=== PATIENT | female | born 1945 | race African-American/Black ===

== ENCOUNTER 2017-01-28 09:15 | Emergency (ER) | payer MEDICARE, MEDICAID ==
[~2017-01-28] VITALS: Ht 154.9 cm; Wt 100.0 kg
[~2017-01-28 09:15] MED LIST: ADULT ASA81 MG OR; ALAVERT1 TAB OR; AMLODIPINE5 MG PO; ASPIRIN EC81 MG PO; ATENOLOL50 MG OR; ATENOLOL50 MG PO; AVELOX400 MG OR; BACLOFEN10 MG PO; BETIMOL0.5 % OP; CELEXA20 M1 PO; CHERATUSSIN PO; CYCLOBENZAPR10 MG OR; CYMBALTA30 MG OR; DARVOCET N-100100 - OR; DIOVAN HCT160 MG/25 PO; EC ASPIRIN325 MG PO; FENOFIBRATE160 MG OR; FERROUS SULF325 M1 PO; FINASTERIDE5 MG PO; GERI HYDROLA EX; HYDROCHLOROT25 MG PO; HYZAAR1 TA1 OR; IMDUR30 MG PO; LORAZEPAM0.5 MG OR; LORTAB 10-325 M1 TAB PO; LOVASTATIN40 M1 PO; LYRICA100 MG PO; LYRICA75 MG OR; METFORMIN500 MG PO; MORPHINE SUL30 M3 PO; NEXIUM40 M1 OR; NITROGLYCER0.4 M1 SL; NITROGLYCER0.4 MG PO; NITROQUICK0.4 MG SL; OMEPRAZOLE20 MG; OMEPRAZOLE20 MG PO; OXYCODONE5 MG OR; PAXIL20 MG OR; PLAVIX75 MG PO; PLETAL100 MG PO; PREVACID30 M1 PO; QVAR80 MCG IN; ROBITUSSIN AC10 ML PO; SIMVASTATIN40 MG PO; SUCRALFATE1 GM PO; TAB-A-VIT1 OR; TERAZOSIN5 MG PO; TRAMADOL HCL50 MG OR; TRICOR145 MG OR; ULTRAM50 MG PO; VENTOLIN HFA IN; ZITHROMAX250 MG PO; ZPAK PO
[2017-01-28 09:47] LABS: HEMATOCRIT 39.9 % (37.0-47.0); HEMOGLOBIN 12.8 g/dl (12.0-16.0); IMMATURE GRANULOCYTES 0.3 % (0.0-1.0); MEAN CELL VOLUME 87.9 fL CALC (80.0-100.0); MEAN CORPUSCULAR HGB 28.2 pG CALC (26.0-32.0); MEAN CORPUSCULAR HGB CONC 32.1 g/L CALC (32.0-36.0); NEUT# 4.28 thou/uL (2.00-7.15); RED BLOOD COUNT 4.54 mill/uL (4.20-5.60); RED CELL DISTRI WIDTH 14.7 % (11.5-15.5)
[2017-01-28 09:59] LABS: ALBUMIN 4.1 g/dL (3.2-5.0); ALKALINE PHOSPHATASE 118 u/l (38-126); ANION GAP 13 (6-22 (CALC)); BILIRUBIN, TOTAL 0.9 mg/dL (0.0-1.4); BUN 15 mg/dL (8-23); BUN/CREATININE RATIO 25 (12-20 (CALC)); CALCIUM 8.8 mg/dL (8.4-10.2); CARBON DIOXIDE 28 mmol/l (22-30); CHLORIDE 104 mmol/l (95-108); CREATININE 0.6 mg/dL (0.5-1.0); GFR > 60 ML/MIN (>=60 (CALC)); GFR FOR AFR.AMER. > 60 ML/MIN (>=60 (CALC)); GLUCOSE 87 mg/dL (82-115); POTASSIUM 4.1 mmol/l (3.5-5.1); SGOT/AST 31 u/l (9-36); SGPT/ALT 19 u/l (11-66); SODIUM 141 mmol/l (137-146); TOTAL PROTEIN 7.9 g/dL (6.3-8.2)
[2017-01-28 10:04] LABS: ACT PARTIAL THROMBO TIME 25.7 SECONDS (20.0-32.5); INTERNATIONAL NORMALIZED RATIO 0.9 RATIO (0.7-1.3); PROTHROMBIN TIME 10.2 SECONDS (9.0-12.5)
[2017-01-28 10:11] LABS: MYOGLOBIN 27 ng/mL (0 - 62)
[2017-01-28 10:35] LABS: URINE BILIRUBIN - DIPSTICK NEGATIVE (NEGATIVE); URINE BLOOD DIPSTICK NEGATIVE (NEGATIVE); URINE CLARITY CLEAR; URINE COLOR YELLOW; URINE GLUCOSE - DIPSTICK NEGATIVE (NEGATIVE); URINE KETONE NEGATIVE (NEGATIVE); URINE LEUK ESTERASE NEGATIVE (NEGATIVE); URINE NITRITE - DIPSTICK NEGATIVE (Negative); URINE PH 6.5 (4.5-8.0); URINE PROTEIN - DIPSTICK NEGATIVE (NEG-TRACE); URINE SPECIFIC GRAVITY <=1.005
[2017-01-28 11:04] VITALS: BP 165/67
== END 2017-01-28 11:05 | disposition short-term general hospital (02) ==
LOC: ED 09:15
PROVIDERS: Emergency Medicine
DX: I63.9 Cerebral infarction, unspecified (principal); I69.351 Hemiplegia and hemiparesis following cerebral infarction affecting right dominant side; I69.392 Facial weakness following cerebral infarction; E11.9 Type 2 diabetes mellitus without complications; I10 Essential (primary) hypertension; E78.5 Hyperlipidemia, unspecified; R29.703 NIHSS score 3; Z95.5 Presence of coronary angioplasty implant and graft

== ENCOUNTER 2017-04-13 08:05 | Day surgery (SDC) | payer MEDICARE, MEDICAID ==
[~2017-04-13] VITALS: Ht 154.9 cm; Wt 99.8 kg
[~2017-04-13 08:05] MED LIST changes: +OXYBUTYNIN5 M1 PO; +PROTONIX40 M2 PO
[2017-04-13 10:40] VITALS: BP 117/57
== END 2017-04-13 10:55 | disposition home or self-care (01) ==
LOC: ENDO 08:05
PROVIDERS: ATTEND Internal Medicine Gastroenterology
PROC: 0DBL8ZX Excision of Transverse Colon, Via Natural or Artificial Opening Endoscopic, Diagnostic (ICD-10-PCS; principal; 2017-04-13)
PROC: 0DBN8ZX Excision of Sigmoid Colon, Via Natural or Artificial Opening Endoscopic, Diagnostic (ICD-10-PCS; 2017-04-13)
PROC: 0DBK8ZX Excision of Ascending Colon, Via Natural or Artificial Opening Endoscopic, Diagnostic (ICD-10-PCS; 2017-04-13)
DX: R19.5 Other fecal abnormalities (principal); R10.9 Unspecified abdominal pain; K64.4 Residual hemorrhoidal skin tags; K64.8 Other hemorrhoids; K63.5 Polyp of colon; D12.2 Benign neoplasm of ascending colon; D12.5 Benign neoplasm of sigmoid colon; D12.3 Benign neoplasm of transverse colon; E11.9 Type 2 diabetes mellitus without complications; I25.10 Atherosclerotic heart disease of native coronary artery without angina pectoris; Z86.010 Personal history of colon polyps

== ENCOUNTER 2017-10-02 18:51 | Observation (INO) | payer MEDICARE, MEDICAID ==
[~2017-10-02] VITALS: Ht 154.9 cm; Wt 109.4 kg
[~2017-10-02 18:51] MED LIST changes: +DITROPAN PO; +EQL FLUTIC50 MCG/ACT; +GLUCOPHAGE500 MG PO; +ISOSORBIDE MONO30 MG PO; +LEVOCETIRIZINE D5 MG; +MIRALAX3350 NF PO; +NITROSTAT0.4 MG SL; +TRAMADOL HCL50 MG PO
--- NOTE | 2017-10-02 19:05 | NUR ---
PT ARRIVES VIA EMS, PT TRANSFERED TO STRETCHER W/OUT INCIDENT. FAMILY AT BEDSIDE. PT A&OX3, PT DENIES C/P OR ACUTE DISTRESS AT THIS TIME. PT JARON. PLAN OF CARE DISCUSSED WITH PT AND FAMILY
--- NOTE | 2017-10-02 19:20 | NUR ---
PT REASSESSMENT COMPLETE. PT REMAINS STABLE. SUPERVISOR ERECTION SHOP IN PLACE. FAMILY AT BEDSIDE.
[2017-10-02 19:32] LABS: HEMATOCRIT 42.6 % (37.0-47.0); HEMOGLOBIN 13.5 g/dl (12.0-16.0); IMMATURE GRANULOCYTES 0.3 % (0.0-1.0); MEAN CELL VOLUME 89.1 fL CALC (80.0-100.0); MEAN CORPUSCULAR HGB 28.2 pG CALC (26.0-32.0); MEAN CORPUSCULAR HGB CONC 31.7 g/L CALC (32.0-36.0); NEUT# 5.29 thou/uL (2.00-7.15); RED BLOOD COUNT 4.78 mill/uL (4.20-5.60); RED CELL DISTRI WIDTH 14.7 % (11.5-15.5)
--- NOTE | 2017-10-02 19:40 | NUR ---
PT REASSESSMENT COMPLETE. PT DENIES ANY CHANGE IN STATUS. NEEDS ASSESSMENT COMPLETE, PT DENIES ANY NEEDS AT THIS TIME.
[2017-10-02 19:44] LABS: ACT PARTIAL THROMBO TIME 22.7 SECONDS (20.0-32.5); ALBUMIN 4.2 g/dL (3.2-5.0); ALKALINE PHOSPHATASE 125 u/l (38-126); ANION GAP 16 (6-22 (CALC)); BILIRUBIN, TOTAL 0.7 mg/dL (0.0-1.4); BUN 14 mg/dL (8-23); BUN/CREATININE RATIO 18 (12-20 (CALC)); CARBON DIOXIDE 26 mmol/l (22-30); CHLORIDE 106 mmol/l (95-108); CREATININE 0.8 mg/dL (0.5-1.0); GFR > 60 ML/MIN (>=60 (CALC)); GFR FOR AFR.AMER. > 60 ML/MIN (>=60 (CALC)); POTASSIUM 3.6 mmol/l (3.5-5.1); PROTHROMBIN TIME 10.6 SECONDS (9.0-12.5); SGOT/AST 25 u/l (9-36); SGPT/ALT 20 u/l (11-66); SODIUM 144 mmol/l (137-146); TOTAL PROTEIN 7.5 g/dL (6.3-8.2)
[2017-10-02 19:56] LABS: MYOGLOBIN 44 ng/mL (0 - 62)
--- NOTE | 2017-10-02 19:56 | NUR ---
PT MEDICATED PER MD ORDER. PT DENIES ANY ADDITIONAL COMPLAINTS. PT IN NO PAIN AT THIS TIME.
--- NOTE | 2017-10-02 20:20 | NUR ---
PT AND FAMILY REMAIN IN TX RM 15. PT IN NO ACUTE DISTRESS AT THIS TIME. PT DENIES NEEDS AT THIS TIME.
--- NOTE | 2017-10-02 21:00 | NUR ---
PT RESTING WITH FAMILY AT BEDSIDE. PT DENIES ANY CHANGE IN STATUS. PT ADVISED OF PLAN OF CARE.
--- NOTE | 2017-10-02 21:30 | NUR ---
PT PROVIDED BSC FAMILY REMAIN IN RM. DENIES ANY NEEDS AT THIS TIME.
--- NOTE | 2017-10-02 22:05 | NUR ---
PT REASSESSMENT COMPLETE. ONLY C/O "HUNGRY" PROVIDED SANDWHICH AND PO FLUIDS
[2017-10-02 22:20] LABS: URINE BILIRUBIN - DIPSTICK NEGATIVE (NEGATIVE); URINE BLOOD DIPSTICK NEGATIVE (NEGATIVE); URINE COLOR YELLOW; URINE GLUCOSE - DIPSTICK NEGATIVE (NEGATIVE); URINE KETONE NEGATIVE (NEGATIVE); URINE LEUK ESTERASE TRACE (NEGATIVE); URINE PROTEIN - DIPSTICK NEGATIVE (NEG-TRACE); URINE SPECIFIC GRAVITY 1.025
[2017-10-02 22:22] LABS: URINE CLARITY CLOUDY; URINE NITRITE - DIPSTICK POSITIVE (Negative)
[2017-10-02 22:28] LABS: URINE BACTERIA MANY hpf; URINE SQUAMOUS EPITHELIAL CELL FEW EPI/hpf (0-FEW)
--- NOTE | 2017-10-02 22:32 | NUR ---
REPORT TO JACKY TURCIOS. DENIES ANY QUESTIONS UPON COMPLETION.
--- NOTE | 2017-10-02 22:45 | NUR ---
PT TRANSFERED TO MED SURG W/OUT INCIDENT. PT CONTINUES TO IMPROVE. PT THANKED ME FOR MY CARE.
[2017-10-02 22:50] VITALS: BP 95/62
--- NOTE | 2017-10-02 22:50 | NUR ---
RECEIVED FROM ER VIA STRETCHER ACCOMPANIED BY SHA TURCIOS. AMBULATING TO BED WITH STANDBY ASSISTANCE, A/O X3, RESPIRATIONS EVEN AND UNALBORED. DENIES CHEST PAIN, OR DIZZINESS AT THIS TIME. TELE IN PLACE READING SR. ORIENTED TO BED CONTROLS AND CALL LIGHT. PO FLUIDS IN REACH.
[2017-10-03 04:08] VITALS: BP 92/58
--- NOTE | 2017-10-03 04:30 | NUR ---
OOB TO BSC WITH STANDBY ASSISTANCE, SLICK LYN AT PT'S SIDE. A/O X3, DENIES CHEST PAIN.
[2017-10-03 07:01] LABS: HEMOGLOBIN 12.8 g/dl (12.0-16.0); MEAN CELL VOLUME 90.3 fL CALC (80.0-100.0); MEAN CORPUSCULAR HGB 28.9 pG CALC (26.0-32.0); RED BLOOD COUNT 4.43 mill/uL (4.20-5.60); RED CELL DISTRI WIDTH 14.9 % (11.5-15.5)
[2017-10-03 07:55] VITALS: BP 114/70
--- NOTE | 2017-10-03 07:55 | NUR ---
ASSESSMENT IS COMPLETEDl: IV SITE IS FREE FROM REDNESS OR EDEMA. HR IS REG,PULSES ARE STRONG X4,ABD IS SOFT WITH ACTIVE BS. CONTINUE TO OBSERVE AND MONITOR.
[2017-10-03 11:04] VITALS: BP 131/67
--- NOTE | 2017-10-03 12:00 | NUR ---
PT IS RELAXING IN THE CHAIR, NO DISTRESS NOTED, IV SITE IS FREE FROM REDNESS OR EDEMA.
[2017-10-03] MEDS ORDERED: DIOVAN HCT PO (14:07)
[2017-10-03] MEDS ORDERED: TRAMADOL HYDROC50 MG PO (14:08)
[2017-10-03] MEDS ORDERED: DOXYCYC MONO100 M2 PO (14:27)
--- NOTE | 2017-10-03 14:42 | NUR ---
PT RECEIVED DISCHARGE INSTRUCTIONS AND VERBALIZED UNDERSTANDING.IV SITE DISCONTINUED CATHETER INTACT. NO DISTRESS NOTED. TELE MONITOR TAKEN OFF.
--- NOTE | 2017-10-03 14:56 | NUR ---
PT BEING TRANSPORTED TO GO HOME IV SITE WAS DISCONTINUED Discharge instructions given. Patient verbalizes understanding of same. Discharged in stable condition via Wheelchair to Home with family. All belongings sent with pt.
== END 2017-10-03 14:48 | disposition home or self-care (01) ==
LOC: ED 18:51 → ED-I 21:20 → ED 21:49 → MS2 21:50
PROVIDERS: Emergency Medicine; Nurse Practitioner Family; ADMIT Internal Medicine; ATTEND Internal Medicine
DX: R07.89 Other chest pain (principal); R55 Syncope and collapse; T46.3X5A Adverse effect of coronary vasodilators, initial encounter; I10 Essential (primary) hypertension; I25.10 Atherosclerotic heart disease of native coronary artery without angina pectoris; E78.5 Hyperlipidemia, unspecified; E11.40 Type 2 diabetes mellitus with diabetic neuropathy, unspecified; M19.90 Unspecified osteoarthritis, unspecified site; N39.0 Urinary tract infection, site not specified; B96.20 Unspecified Escherichia coli [E. coli] as the cause of diseases classified elsewhere; Z95.5 Presence of coronary angioplasty implant and graft; Z86.73 Personal history of transient ischemic attack (TIA), and cerebral infarction without residual deficits; Z79.82 Long term (current) use of aspirin; Z79.02 Long term (current) use of antithrombotics/antiplatelets; Z87.891 Personal history of nicotine dependence; Z79.84 Long term (current) use of oral hypoglycemic drugs

== ENCOUNTER 2018-08-01 17:27 | Observation (INO) | payer MEDICARE, MEDICAID ==
[~2018-08-01] VITALS: Ht 154.9 cm; Wt 104.8 kg
[~2018-08-01 17:27] MED LIST changes: +DIOVAN HCT PO; +DOXYCYC MONO100 M2 PO; +TRAMADOL HYDROC50 MG PO
[2018-08-01] MEDS ORDERED: OMEPRAZOLE10 MG PO (17:48)
[2018-08-01 18:04] LABS: HEMATOCRIT 42.4 % (37.0-47.0); HEMOGLOBIN 13.6 g/dl (12.0-16.0); IMMATURE GRANULOCYTES 0.2 % (0.0-5.0); MEAN CELL VOLUME 90.2 fL CALC (80.0-100.0); MEAN CORPUSCULAR HGB 28.9 pG CALC (26.0-32.0); MEAN CORPUSCULAR HGB CONC 32.1 g/L CALC (32.0-36.0); NEUT# 7.37 thou/uL (2.00-7.15); RED BLOOD COUNT 4.7 mill/uL (4.20-5.60); RED CELL DISTRI WIDTH 14.6 % (11.5-15.5)
[2018-08-01 18:15] LABS: ALBUMIN 3.9 g/dL (3.2-5.0); ALKALINE PHOSPHATASE 100 u/l (38-126); ANION GAP 14 (6-22 (CALC)); BILIRUBIN, TOTAL 0.8 mg/dL (0.0-1.4); BUN 12 mg/dL (8-23); BUN/CREATININE RATIO 16 (12-20 (CALC)); CARBON DIOXIDE 26 mmol/l (22-30); CHLORIDE 106 mmol/l (95-108); CREATININE 0.8 mg/dL (0.5-1.0); GFR > 60 ML/MIN (>=60 (CALC)); GFR FOR AFR.AMER. > 60 ML/MIN (>=60 (CALC)); LIPASE 72 u/l (23-300); POTASSIUM 3.7 mmol/l (3.5-5.1); SGOT/AST 21 u/l (9-36); SODIUM 142 mmol/l (137-146); TOTAL PROTEIN 7.6 g/dL (6.3-8.2)
[2018-08-01 19:45] VITALS: BP 142/76
[2018-08-02 00:28] VITALS: BP 145/80
[2018-08-02 04:51] VITALS: BP 141/76
[2018-08-02 06:38] LABS: CHOLESTEROL HDL RATIO 4.3 (<4.4 (CALC))
[2018-08-02 06:40] LABS: MAGNESIUM 1.7 mg/dL (1.6-2.3)
[2018-08-02 08:43] VITALS: BP 101/56
[2018-08-02 11:15] VITALS: BP 107/62
[2018-08-02] MEDS ORDERED: ROBITUSSIN AC10 ML PO (12:47)
== END 2018-08-02 14:38 | disposition home or self-care (01) ==
LOC: ED 17:27 → ED-I 18:00 → ED 18:59 → MS2 19:00
PROVIDERS: Emergency Medicine; ADMIT Internal Medicine; ATTEND Internal Medicine
DX: R07.89 Other chest pain (principal); R05 Cough; I10 Essential (primary) hypertension; E11.40 Type 2 diabetes mellitus with diabetic neuropathy, unspecified; I25.10 Atherosclerotic heart disease of native coronary artery without angina pectoris; E78.5 Hyperlipidemia, unspecified; K21.9 Gastro-esophageal reflux disease without esophagitis; G89.29 Other chronic pain; F41.8 Other specified anxiety disorders; Z95.5 Presence of coronary angioplasty implant and graft; Z87.891 Personal history of nicotine dependence; Z86.73 Personal history of transient ischemic attack (TIA), and cerebral infarction without residual deficits; Z96.641 Presence of right artificial hip joint; Z98.890 Other specified postprocedural states; R06.02 Shortness of breath

== ENCOUNTER 2018-12-14 21:39 | Emergency (ER) | payer MEDICARE, MEDICAID ==
[~2018-12-14] VITALS: Ht 154.9 cm; Wt 102.7 kg
[~2018-12-14 21:39] MED LIST changes: +OMEPRAZOLE10 MG PO
--- NOTE | 2018-12-14 21:58 | NUR ---
BREATHING TREATMENT GIVEN BACK TO BACK. BREATHING TECH. FOR GOOD DEPOSITION TO THE LUNGS.
[2018-12-14 22:12] LABS: HEMATOCRIT 44.9 % (37.0-47.0); HEMOGLOBIN 14.2 g/dl (12.0-16.0); IMMATURE GRANULOCYTES 0.5 % (0.0-5.0); MEAN CELL VOLUME 90.3 fL CALC (80.0-100.0); MEAN CORPUSCULAR HGB 28.6 pG CALC (26.0-32.0); MEAN CORPUSCULAR HGB CONC 31.6 g/L CALC (32.0-36.0); NEUT# 4.93 thou/uL (2.00-7.15); RED BLOOD COUNT 4.97 mill/uL (4.20-5.60); RED CELL DISTRI WIDTH 15.6 % (11.5-15.5)
[2018-12-14] MEDS ORDERED: PREDNISONE50 MG PO (23:07)
[2018-12-14] MEDS ORDERED: ALBUTEROL SUL0.083 % IN (23:07)
[2018-12-14] MEDS ORDERED: TESSALON PER100 MG PO (23:08)
[2018-12-14 23:20] VITALS: BP 145/90
== END 2018-12-14 23:20 | disposition home or self-care (01) ==
LOC: ED 21:39
PROVIDERS: Family Medicine
DX: J45.901 Unspecified asthma with (acute) exacerbation (principal); E11.9 Type 2 diabetes mellitus without complications; I10 Essential (primary) hypertension; Z86.73 Personal history of transient ischemic attack (TIA), and cerebral infarction without residual deficits

== ENCOUNTER 2019-06-02 11:22 | Emergency (ER) | payer MEDICARE, MEDICAID ==
[~2019-06-02] VITALS: Ht 154.9 cm; Wt 101.0 kg
[~2019-06-02 11:22] MED LIST changes: +ALBUTEROL SUL0.083 % IN; -ASPIRIN EC81 MG PO; +BAYER ASPIRIN E81 MG PO; +CITALOPRAM20 M1 PO; +CLOPIDOGREL75 MG PO; +LOSARTAN POTASS50 MG PO; +MAXZIDE-2537.5 MG/TA PO; +PREDNISONE50 MG PO; +TESSALON PER100 MG PO; +VALSARTAN160 MG; +VENTOLIN HF1 IN
[2019-06-02] MEDS ORDERED: LYRICA150 M1 PO (12:06)
[2019-06-02] MEDS ORDERED: DITROPAN5 MG/TA1 PO (12:08)
[2019-06-02] MEDS ORDERED: MAXZIDE-2537.5 MG/TA PO (12:09)
[2019-06-02] MEDS ORDERED: METFORMIN500 M2 PO (12:10)
[2019-06-02] MEDS ORDERED: VENTOLIN H108 MCG/AC PO (12:12)
[2019-06-02] MEDS ORDERED: AMOXICILLIN875 MG PO (13:05)
[2019-06-02 13:15] VITALS: BP 139/71
== END 2019-06-02 13:15 | disposition home or self-care (01) ==
LOC: ED 11:22
DX: J06.9 Acute upper respiratory infection, unspecified (principal); J02.9 Acute pharyngitis, unspecified; I10 Essential (primary) hypertension; E11.9 Type 2 diabetes mellitus without complications; Z79.84 Long term (current) use of oral hypoglycemic drugs
CPT/HCPCS: J0561

== ENCOUNTER 2020-05-26 08:57 | Observation (INO) | payer MEDICARE, MEDICAID ==
[~2020-05-26] VITALS: Ht 154.9 cm; Wt 104.8 kg
[~2020-05-26 08:57] MED LIST changes: +AMOXICILLIN875 MG PO; +DITROPAN5 MG/TA1 PO; +LYRICA150 M1 PO; +VENTOLIN H108 MCG/AC PO
--- NOTE | 2020-05-26 09:13 | NUR ---
PATIENT TO ROOM VIA WHEELCHAIR FOR BEDSIDE TRIAGE.
--- NOTE | 2020-05-26 10:10 | NUR ---
UNABLE TO OBTAIN IV AFTER MULTIPLE ATTEMPTS BY MULTIPLE PEOPLE, NOTIFIED.
[2020-05-26 10:35] LABS: URINE BILIRUBIN - DIPSTICK NEGATIVE (NEGATIVE); URINE BLOOD DIPSTICK NEGATIVE (NEGATIVE); URINE COLOR YELLOW; URINE GLUCOSE - DIPSTICK NEGATIVE (NEGATIVE); URINE KETONE NEGATIVE (NEGATIVE); URINE LEUK ESTERASE NEGATIVE (NEGATIVE); URINE PH 6.5 (4.5-8.0); URINE PROTEIN - DIPSTICK NEGATIVE (NEG-TRACE); URINE SPECIFIC GRAVITY 1.025; URINE UROBILINOGEN - DIPSTICK 0.2 E.U./dL (0.2)
[2020-05-26 10:39] LABS: HEMATOCRIT 45.9 % (37.0-47.0); HEMOGLOBIN 14.6 g/dl (12.0-16.0); IMMATURE GRANULOCYTES 0.2 % (0.0-5.0); MEAN CELL VOLUME 89.5 fL CALC (80.0-100.0); MEAN CORPUSCULAR HGB 28.5 pG CALC (26.0-32.0); MEAN CORPUSCULAR HGB CONC 31.8 g/dL CAL (32.0-36.0); NEUT# 4.25 thou/uL (2.00-7.15); RED BLOOD COUNT 5.13 mill/uL (4.20-5.60); RED CELL DISTRI WIDTH 14.8 % (11.5-15.5)
[2020-05-26 10:43] LABS: URINE NITRITE - DIPSTICK POSITIVE (Negative)
[2020-05-26 10:47] LABS: ALBUMIN 4.1 g/dL (3.2-5.0); ALKALINE PHOSPHATASE 115 u/l (38-126); ANION GAP 12 (6-22 (CALC)); BILIRUBIN, TOTAL 0.8 mg/dL (0.0-1.4); BUN 13 mg/dL (8-23); BUN/CREATININE RATIO 18 (12-20 (CALC)); CARBON DIOXIDE 28 mmol/l (22-30); CHLORIDE 104 mmol/l (95-108); CREATININE 0.7 mg/dL (0.5-1.0); GFR > 60 ML/MIN (>=60 (CALC)); GFR FOR AFR.AMER. > 60 ML/MIN (>=60 (CALC)); LIPASE 99 u/l (23-300); POTASSIUM 3.9 mmol/l (3.5-5.1); SGOT/AST 26 u/l (9-36); SODIUM 139 mmol/l (137-146); TOTAL PROTEIN 7.6 g/dL (6.3-8.2)
[2020-05-26 10:50] LABS: URINE BACTERIA MANY hpf; URINE RBC 0-2 RBC/hpf (0-5); URINE SQUAMOUS EPITHELIAL CELL FEW EPI/hpf (0-FEW); URINE WBC 0-2 WBC/hpf (0-5)
--- NOTE | 2020-05-26 11:05 | NUR ---
TO RADIOLOGY IN STABLE CONDITION VIA WHEELCHAIR.
--- NOTE | 2020-05-26 12:05 | NUR ---
PT AMBULATED TO BATHROOM WITH STEADY GAIT.
--- NOTE | 2020-05-26 12:30 | NUR ---
MD AT BEDSIDE TO DISCUSS RESULTS AND POC.
--- NOTE | 2020-05-26 12:45 | NUR ---
REPORT CALLED TO MUKUL TURCIOS.
[2020-05-26] MEDS ORDERED: NAPROXEN250 MG PO (12:46)
[2020-05-26] MEDS ORDERED: ISOSORB MONO30 MG PO (12:46)
[2020-05-26] MEDS ORDERED: MECLIZINE25 MG PO (12:47)
--- NOTE | 2020-05-26 13:10 | NUR ---
TO ROOM 273 VIA WHEELCHAIR, TELE MONITOR IN PLACE. ACCOMPANIED BY DAUGHTER.
[2020-05-26 13:15] VITALS: BP 168/100
--- NOTE | 2020-05-26 13:30 | NUR ---
PT ARRIVES TO ROOM 273 BY WHEELCHAIR FROM EMERGENCY ROOM, ACCOMPANIED BY DAUGHTER AND HARPER TURCIOS. PT IS ALERT AND ORIENTED X 3. LUNGS CLEAR, RA. NO DISTRESS, PT IS AMBULATORY IN ROOM. ADMISSION ASSESSMENT COMPLETED WITHOUT INCIDENT, PT NOW EATING FROM MEAL TRAY PROVIDED. DAUGHTER HAS GONE HOME.
[2020-05-26 15:54] VITALS: BP 192/90
[2020-05-26 16:30] VITALS: BP 186/89
--- NOTE | 2020-05-26 16:59 | NUR ---
PT BECAME SHORT OF BREATH THIS AFTERNOON AFTER USING BSC. PT WAS EVALUATED BY RN AND RT, SEEN TO HAVE SATS 100%. NC PLACED AT 2 LPM FOR PT COMFORT. PT THEN MENTIONED THAT SHE THOUGHT IT MAY BE RELATED TO HYDRALAZINE RECENTLY GIVEN FOR ELEVATED BLOOD PRESSURE. TO MONITOR...
--- NOTE | 2020-05-26 18:05 | NUR ---
PT SEEN EATING SUPPER AT THIS TIME, NO FURTHER COMPLAINT OF SHORTNESS OF BREATH OR CHEST PAIN. IV ABX RUNNING FOR BLADDER INFECTION.
[2020-05-26 19:00] VITALS: BP 163/87
--- NOTE | 2020-05-26 19:03 | NUR ---
REPORT FROM MUKUL TURCIOS. PT NOTED RESTING IN BED WATCHING TV WITH DAUGHTER AT BEDSIDE. PT ALERT AND ORIENTED. NO APPARENT DISTRESS NOTED. RESPIRATIONS EVEN AND UNLABORED. IV FLUIDS INFUSING WITHOUT DIFFICULTY. QA ARCHITECT IN PLACE. DISCUSSED POC. PT VERBALIZED UNDERSTANDING. CALL LIGHT WITHIN REACH. WILL CONTINUE TO MONITOR.
--- NOTE | 2020-05-26 19:20 | NUR ---
BP REMAINS ELEVATED AND PT C/O BILATERAL BED PAIN. MEDICATED FOR BOTH AT THIS TIME. WILL CONTINUE TO MONITOR.
[2020-05-26 20:30] VITALS: BP 135/64
--- NOTE | 2020-05-26 20:30 | NUR ---
REASSESSMENT OF BP 135/64. PT RESTING IN BED. DENIES ANY CURRENT PAIN OR DISCOMFORT. NO WANTS OR NEEDS NOTED. CALL LIGHT WITHIN REACH. WILL CONTINUE TO MONITOR.
[2020-05-27] VITALS: BP 136/78
--- NOTE | 2020-05-27 00:05 | NUR ---
PT RESTING IN BED. NO APPARENT DISTRESS NOTED. VSS. CALL LIGHT WITHIN REACH. WILL CONTINUE TO MONITOR.
[2020-05-27 04:00] VITALS: BP 139/78
--- NOTE | 2020-05-27 04:41 | NUR ---
PT RESTING IN BED WITH EYES CLOSED. NO APPARENT DISTRESS NOTED. RESPIRATIONS EVEN AND UNLABORED. CALL LIGHT WITHIN REACH. WILL CONTINUE TO MONITOR.
[2020-05-27 06:49] LABS: HEMATOCRIT 48.1 % (37.0-47.0); IMMATURE GRANULOCYTES 0.2 % (0.0-5.0); MEAN CELL VOLUME 90.4 fL CALC (80.0-100.0); MEAN CORPUSCULAR HGB 28.2 pG CALC (26.0-32.0); MEAN CORPUSCULAR HGB CONC 31.2 g/dL CAL (32.0-36.0); NEUT# 4.04 thou/uL (2.00-7.15); RED BLOOD COUNT 5.32 mill/uL (4.20-5.60)
[2020-05-27 07:03] LABS: ALBUMIN 3.6 g/dL (3.2-5.0); ALKALINE PHOSPHATASE 112 u/l (38-126); ANION GAP 11 (6-22 (CALC)); BILIRUBIN, TOTAL 0.8 mg/dL (0.0-1.4); BUN 8 mg/dL (8-23); BUN/CREATININE RATIO 12 (12-20 (CALC)); CALCULATED LDLCHOLESTEROL 121 mg/dL (62-129 (CALC)); CARBON DIOXIDE 25 mmol/l (22-30); CHLORIDE 104 mmol/l (95-108); CHOLESTEROL HDL RATIO 4.6 (<4.4 (CALC)); CREATININE 0.7 mg/dL (0.5-1.0); GFR > 60 ML/MIN (>=60 (CALC)); GFR FOR AFR.AMER. > 60 ML/MIN (>=60 (CALC)); HDL CHOLESTEROL 44 mg/dL (>=40); MAGNESIUM 1.8 mg/dL (1.6-2.3); SGOT/AST 29 u/l (9-36); SODIUM 137 mmol/l (137-146); TOTAL CHOLESTEROL 200 mg/dl (0-199); TOTAL PROTEIN 6.8 g/dL (6.3-8.2); TOTAL TRIGLYCERIDES 175 mg/dl (30-149); VLDL CHOLESTROL 35 mg/dl (0-48 (CALC))
[2020-05-27 07:29] VITALS: BP 154/77
--- NOTE | 2020-05-27 09:00 | NUR ---
PT SEEN AWAKE, ALERT, ORIENTED X 3. PT STATES THAT SHE STILL FEELS SHORT OF BREATH, WHICH HAS BEEN ONGOING FOR SOME WEEKS NOW. PT HOPES FOR DISCHARGE TO HOME. NO ACUTE DISTRESS NOTED.
[2020-05-27] MEDS ORDERED: METFORMIN500 M2 PO (09:04)
[2020-05-27 09:05] VITALS: BP 154/77
[2020-05-27] MEDS ORDERED: KEFLEX500 MG PO (09:06)
--- NOTE | 2020-05-27 10:00 | NUR ---
PT HAS BEEN DISCHARGED TO HOME. IV REMOVED, TELE REMOVED, PT VERBALIZES UNDERSTANDING OF DC INSTRUCTIONS, TAKEN BY WHEELCHAIR TO VEHICLE WHERE HER SON PICKED HER UP. PT LEAVES IN STABLE CONDITION, AWARE THAT SHE SHOULD RETURN IF NEEDED.
== END 2020-05-27 10:00 | disposition home or self-care (01) ==
LOC: ED 08:57 → ED-I 12:15 → ED 12:31 → MS2 12:32
PROVIDERS: Family Medicine; Nurse Practitioner; ADMIT Internal Medicine; ATTEND Internal Medicine
DX: R07.9 Chest pain, unspecified (principal); N39.0 Urinary tract infection, site not specified; I10 Essential (primary) hypertension; T42.6X6A Underdosing of other antiepileptic and sedative-hypnotic drugs, initial encounter; I69.351 Hemiplegia and hemiparesis following cerebral infarction affecting right dominant side; I25.10 Atherosclerotic heart disease of native coronary artery without angina pectoris; E78.5 Hyperlipidemia, unspecified; E11.40 Type 2 diabetes mellitus with diabetic neuropathy, unspecified; B96.20 Unspecified Escherichia coli [E. coli] as the cause of diseases classified elsewhere; Z87.891 Personal history of nicotine dependence; Z91.128 Patient's intentional underdosing of medication regimen for other reason; Z95.5 Presence of coronary angioplasty implant and graft; Z79.84 Long term (current) use of oral hypoglycemic drugs; Z20.828 Contact with and (suspected) exposure to other viral communicable diseases
CPT/HCPCS: G0378; J1650; Q9967

== ENCOUNTER 2021-03-16 14:54 | Emergency (ER) | payer MEDICARE, MEDICAID ==
[~2021-03-16] VITALS: Ht 154.9 cm; Wt 100.0 kg
[~2021-03-16 14:54] MED LIST changes: +ISOSORB MONO30 MG PO; +KEFLEX500 MG PO; +MECLIZINE25 MG PO; +METFORMIN500 M2 PO; +NAPROXEN250 MG PO
[2021-03-16] MEDS ORDERED: NAPROXEN500 MG PO (16:11)
[2021-03-16 16:35] VITALS: BP 158/78
== END 2021-03-16 16:35 | disposition home or self-care (01) ==
LOC: ED 14:54
DX: S00.83XA Contusion of other part of head, initial encounter (principal); I10 Essential (primary) hypertension; W01.0XXA Fall on same level from slipping, tripping and stumbling without subsequent striking against object, initial encounter; Y92.009 Unspecified place in unspecified non-institutional (private) residence as the place of occurrence of the external cause; Z79.82 Long term (current) use of aspirin

== ENCOUNTER 2022-05-25 14:01 | Emergency (ER) | payer MEDICARE, MEDICAID ==
[~2022-05-25] VITALS: Ht 154.9 cm; Wt 103.0 kg
[~2022-05-25 14:01] MED LIST changes: +NAPROXEN500 MG PO
[2022-05-25 14:17] VITALS: BP 154/92
[2022-05-25] MEDS ORDERED: LYRICA150 MG PO (14:23)
[2022-05-25] MEDS ORDERED: CRESTOR10 MG PO (14:23)
[2022-05-25] MEDS ORDERED: HYDROCO/APAP1 T10 PO (14:24)
[2022-05-25 14:30] LABS: HEMATOCRIT 46.5 % (37.0-47.0); HEMOGLOBIN 14.7 g/dl (12.0-16.0); MEAN CELL VOLUME 92.6 fL CALC (80.0-100.0); MEAN CORPUSCULAR HGB 29.3 pG CALC (26.0-32.0); MEAN CORPUSCULAR HGB CONC 31.6 g/dL CAL (32.0-36.0); NEUT# 4.67 thou/uL (2.00-7.15); RED BLOOD COUNT 5.02 mill/uL (4.20-5.60); RED CELL DISTRI WIDTH 14.5 % (11.5-15.5)
[2022-05-25 14:47] VITALS: BP 118/97
[2022-05-25 14:53] LABS: ALKALINE PHOSPHATASE 119 u/l (38-126); ANION GAP 13 (6-22 (CALC)); BUN 13 mg/dL (8-23); BUN/CREATININE RATIO 16 (12-20 (CALC)); CARBON DIOXIDE 26 mmol/l (22-30); CHLORIDE 104 mmol/l (95-108); CREATININE 0.8 mg/dL (0.5-1.0); GFR FOR AFR.AMER. > 60 ML/MIN (>=60 (CALC)); GFR OTHER RACES > 60 ML/MIN (>=60 (CALC)); POTASSIUM 3.9 mmol/l (3.5-5.1); PROTHROMBIN TIME 10.1 SECONDS (9.0-12.5); SGOT/AST 38 u/l (9-36); SODIUM 139 mmol/l (137-146); TOTAL PROTEIN 8.1 g/dL (6.3-8.2)
[2022-05-25 14:57] LABS: ALBUMIN 4.5 g/dL (3.2-5.0)
[2022-05-25 15:16] VITALS: BP 162/135
[2022-05-25 15:22] LABS: URINE BILIRUBIN - DIPSTICK NEGATIVE (NEGATIVE); URINE BLOOD DIPSTICK NEGATIVE (NEGATIVE); URINE COLOR YELLOW; URINE GLUCOSE - DIPSTICK NEGATIVE (NEGATIVE); URINE KETONE NEGATIVE (NEGATIVE); URINE LEUK ESTERASE TRACE (NEGATIVE); URINE NITRITE - DIPSTICK NEGATIVE (Negative); URINE PROTEIN - DIPSTICK NEGATIVE (NEG-TRACE)
[2022-05-25 15:25] LABS: URINE BACTERIA MANY hpf; URINE SQUAMOUS EPITHELIAL CELL FEW EPI/hpf (0-FEW)
[2022-05-25 15:31] VITALS: BP 143/66
[2022-05-25 15:43] VITALS: BP 143/66
== END 2022-05-25 16:03 | disposition home or self-care (01) ==
LOC: ED 14:01
PROVIDERS: Family Medicine
DX: H53.8 Other visual disturbances (principal); I69.351 Hemiplegia and hemiparesis following cerebral infarction affecting right dominant side; I10 Essential (primary) hypertension; I25.2 Old myocardial infarction; I25.10 Atherosclerotic heart disease of native coronary artery without angina pectoris; E78.5 Hyperlipidemia, unspecified; R73.03 Prediabetes; G62.9 Polyneuropathy, unspecified; Z95.5 Presence of coronary angioplasty implant and graft; Z87.891 Personal history of nicotine dependence

== ENCOUNTER → 2024-10-30 | Emergency (ER) | payer MEDICARE, MEDICAID ==
[~2024-10-30] VITALS: Ht 154.9 cm; Wt 95.0 kg
[2024-10-30] VITALS (9 sets, daily range): BP systolic 103–164; BP diastolic 69–120
[~2024-10-30] MED LIST changes: +BENZONATATE200 MG PO; +CRESTOR10 MG PO; +HYDROCO/APAP1 T10 PO; +LYRICA150 MG PO; +MEDDOSEPAK PO; +METHOCARBAMOL500 MG PO
[2024-10-30 15:33] LABS: BASO% 0.5 % (0-3); EOS% 1.1 % (0-8); HEMATOCRIT 42.8 % (37.0-47.0); HEMOGLOBIN 13.3 g/dl (12.0-16.0); IMMATURE GRANULOCYTES 0.2 % (0.0-5.0); LYMPH% 16.4 % (15-41); MEAN CELL VOLUME 94.3 fL CALC (80.0-100.0); MEAN CORPUSCULAR HGB 29.3 pG CALC (26.0-32.0); MEAN CORPUSCULAR HGB CONC 31.1 g/dL CAL (32.0-36.0); MONO% 9.2 % (2-13); NEUT# 4.12 thou/uL (2.00-7.15); NEUT% 72.6 % (42-76); RED BLOOD COUNT 4.54 mill/uL (4.20-5.60); RED CELL DISTRI WIDTH 13.9 % (11.5-15.5)
[2024-10-30 15:46] LABS: ALBUMIN 4.2 g/dL (3.2-5.0); ALKALINE PHOSPHATASE 111 u/l (38-126); ANION GAP 9 (6-22 (CALC)); BILIRUBIN, TOTAL 0.7 mg/dL (0.02-1.3); BUN 16 mg/dL (8-23); BUN/CREATININE RATIO 19 (12-20 (CALC)); CARBON DIOXIDE 33 mmol/l (22-30); CHLORIDE 100 mmol/l (95-108); CREATININE 0.8 mg/dL (0.5-1.0); ESTIMATED GFR 75 ML/MIN (>=90 (CALC)); LIPASE 100 u/l (23-300); POTASSIUM 3.9 mmol/l (3.5-5.1); SGOT/AST 37 u/l (9-36); SODIUM 139 mmol/l (137-146); TOTAL PROTEIN 8.1 g/dL (6.3-8.2)
[2024-10-30 16:34] LABS: URINE BILIRUBIN - DIPSTICK Negative (NEGATIVE); URINE BLOOD DIPSTICK Negative (NEGATIVE); URINE GLUCOSE - DIPSTICK Negative (NEGATIVE); URINE KETONE Negative (NEGATIVE); URINE LEUK ESTERASE Negative (NEGATIVE); URINE NITRITE - DIPSTICK Negative (Negative); URINE PROTEIN - DIPSTICK Negative (NEG-TRACE); URINE SPECIFIC GRAVITY 1.015; URINE UROBILINOGEN - DIPSTICK 0.2 E.U./dL (0.2)
[2024-10-30 16:35] LABS: URINE COLOR Yellow
== END | disposition home or self-care (01) ==
LOC: ED 14:38
PROVIDERS: Nurse Practitioner
DX: R07.9 Chest pain, unspecified (principal); M47.22 Other spondylosis with radiculopathy, cervical region; I10 Essential (primary) hypertension; I25.2 Old myocardial infarction; Z86.73 Personal history of transient ischemic attack (TIA), and cerebral infarction without residual deficits